=== PATIENT | female | born 1975 | race African-American/Black ===

== ENCOUNTER 2021-02-27 01:54 | Emergency (ER) | payer MEDICAID ==
[~2021-02-27] VITALS: Ht 167.6 cm; Wt 77.0 kg
[2021-02-27] MEDS ORDERED: IBUPROFEN 800MG TABLET PO ONE (02:45)
[2021-02-27 03:49] LABS: CLARITY URINE TURBID (CLEAR); COLOR URINE DARK YELLOW (YELLOW); KETONES URINE TRACE (NEGATIVE); LEUKOCYTE ESTERASE URINE NEGATIVE (NEGATIVE); NITRITE URINE NEGATIVE (NEGATIVE); OCCULT BLOOD URINE NEGATIVE (NEGATIVE); PH URINE 5.5 (4.5-8.0); PROTEIN URINE 1+ (NEGATIVE); SPECIFIC GRAVITY URINE 1.044 (1.005-1.030)
[2021-02-27 04:01] LABS: *BARBITURATES SCREEN URINE NEGATIVE (NEGATIVE)
[2021-02-27 04:02] LABS: *BENZODIAZEPINES SCREEN URINE NEGATIVE (NEGATIVE); *COCAINE SCREEN URINE NEGATIVE (NEGATIVE); METHADONE URINE SCREEN NEGATIVE (NEGATIVE); OPIATES URINE SCREEN NEGATIVE (NEGATIVE); PHENCYCLIDINE URINE SCREEN NEGATIVE (NEGATIVE)
[2021-02-27 04:05] LABS: BASOPHILS % 1.2 % (0.0-2.0); EOSINOPHILS % 3.1 % (0.0-5.0); HEMATOCRIT. 34.4 % (36.0-48.0); HEMOGLOBIN. 11.5 g/dL (12.0-16.0); LYMPHOCYTES % 40.4 % (20.0-50.0); MEAN CORPUSCULAR HEMOGLOBIN 27.3 pg (28.0-32.0); MEAN PLATELET VOLUME 8.4 fl (7.4-10.4); MONOCYTES % 9.9 % (2.0-8.0); NEUTROPHILS % 45.4 % (40.0-76.0); PLATELET 359 x1000/uL (130-400); RED CELL DISTRIBUTION WIDTH 18.6 % (11.6-14.6)
[2021-02-27 04:10] LABS: CHLORIDE 107 mEq/L (98-107)
[2021-02-27 04:13] LABS: *AMPHETAMINES SCREEN URINE PRESUMTIVE POSITIVE (NEGATIVE); CANNABINOID URINE SCREEN PRESUMTIVE POSITIVE (NEGATIVE)
[2021-02-27 04:14] LABS: ETHANOL BLOOD < 10 mg/dL
[2021-02-27 05:50] VITALS: BP 126/76
== END 2021-02-27 08:25 | disposition home or self-care (01) ==
LOC: ER 01:54
DX: S09.8XXA Other specified injuries of head, initial encounter (principal); R07.89 Other chest pain; M79.18 Myalgia, other site; T74.11XA Adult physical abuse, confirmed, initial encounter; Y07.03 Male partner, perpetrator of maltreatment and neglect; F15.10 Other stimulant abuse, uncomplicated; F16.10 Hallucinogen abuse, uncomplicated; F12.10 Cannabis abuse, uncomplicated; F91.8 Other conduct disorders; Y00.XXXA Assault by blunt object, initial encounter; Y93.89 Activity, other specified; Y92.89 Other specified places as the place of occurrence of the external cause; Z59.0 Homelessness
CPT/HCPCS: 36415; 71045; 80053; 80305; 80307; 80320; 80329; 81003; 81025; 85025; 99284; G0480